=== PATIENT | male | born 1980 | race Caucasian/White ===

== ENCOUNTER 2019-09-24 06:00 | Outpatient (RCR) | payer MEDICARE, SELFPAY | END 2019-10-07 00:01 | LOC: TPT 06:00 | PROVIDERS: Family Provider Family Medicine; Visit Provider Family Medicine | DX: M54.5 Low back pain (principal) | CPT/HCPCS: 97110; 97161; 97530; G0283 ==

== ENCOUNTER 2019-10-08 06:00 | Outpatient (RCR) | payer MEDICARE, MEDICAID, SELFPAY | END 2019-11-07 23:59 | disposition home or self-care (01) | LOC: TOT 06:00 | PROVIDERS: Family Provider Family Medicine; PCP Family Medicine; Visit Provider Family Medicine | DX: G89.29 Other chronic pain (principal); M54.5 Low back pain | CPT/HCPCS: 97110; 97530 ==

== ENCOUNTER → 2019-12-09 14:22 | Outpatient (BNVA) | payer MEDICARE, MEDICAID, SELFPAY | PROVIDERS: Family Provider Family Medicine; PCP Family Medicine; Visit Provider Nurse Practitioner Psychiatric/Mental Health | DX: F20.5 Residual schizophrenia (principal); F17.210 Nicotine dependence, cigarettes, uncomplicated | CPT/HCPCS: 99214 ==

== ENCOUNTER → 2020-01-07 07:23 | Outpatient (BNVA) | payer MEDICARE, MEDICAID, SELFPAY | PROVIDERS: Family Provider Family Medicine; PCP Family Medicine; Visit Provider Nurse Practitioner Psychiatric/Mental Health | DX: F20.5 Residual schizophrenia (principal); F17.210 Nicotine dependence, cigarettes, uncomplicated; F91.3 Oppositional defiant disorder | CPT/HCPCS: 99214 ==

== ENCOUNTER → 2020-02-06 12:56 | Outpatient (BNVA) | payer MEDICARE, MEDICAID, SELFPAY | PROVIDERS: Family Provider Family Medicine; PCP Family Medicine; Visit Provider Nurse Practitioner Psychiatric/Mental Health | DX: F20.5 Residual schizophrenia (principal); F17.210 Nicotine dependence, cigarettes, uncomplicated; F43.12 Post-traumatic stress disorder, chronic | CPT/HCPCS: 99214 ==

== ENCOUNTER → 2020-03-05 08:19 | Outpatient (BNVA) | payer MEDICARE, MEDICAID, SELFPAY | PROVIDERS: Family Provider Family Medicine; PCP Family Medicine; Visit Provider Nurse Practitioner Psychiatric/Mental Health | DX: F20.5 Residual schizophrenia (principal); F17.210 Nicotine dependence, cigarettes, uncomplicated | CPT/HCPCS: 99214 ==

== ENCOUNTER → 2020-04-01 13:08 | Outpatient (BNVA) | payer MEDICARE, MEDICAID, SELFPAY | PROVIDERS: Family Provider Family Medicine; PCP Family Medicine; Visit Provider Nurse Practitioner Psychiatric/Mental Health | DX: F20.5 Residual schizophrenia (principal); F12.20 Cannabis dependence, uncomplicated; F17.210 Nicotine dependence, cigarettes, uncomplicated | CPT/HCPCS: 96372; 99214 ==

== ENCOUNTER → 2020-05-04 07:34 | Outpatient (BNVA) | payer MEDICARE, MEDICAID, SELFPAY | PROVIDERS: Family Provider Family Medicine; PCP Family Medicine; Visit Provider Nurse Practitioner Psychiatric/Mental Health | DX: F20.5 Residual schizophrenia (principal); F12.20 Cannabis dependence, uncomplicated; F17.210 Nicotine dependence, cigarettes, uncomplicated; F41.1 Generalized anxiety disorder; F43.12 Post-traumatic stress disorder, chronic; F64.0 Transsexualism | CPT/HCPCS: 96372; 99214 ==

== ENCOUNTER → 2020-06-03 07:56 | Outpatient (BNVA) | payer MEDICARE, MEDICAID, SELFPAY | PROVIDERS: Family Provider Family Medicine; PCP Family Medicine; Visit Provider Nurse Practitioner Psychiatric/Mental Health | DX: F20.5 Residual schizophrenia (principal); F12.20 Cannabis dependence, uncomplicated; F17.210 Nicotine dependence, cigarettes, uncomplicated; F64.0 Transsexualism | CPT/HCPCS: 96372; 99214 ==

== ENCOUNTER → 2020-07-01 09:44 | Outpatient (BNVA) | payer MEDICARE, MEDICAID, SELFPAY | PROVIDERS: Family Provider Family Medicine; PCP Family Medicine; Visit Provider Nurse Practitioner Psychiatric/Mental Health | DX: F20.5 Residual schizophrenia (principal); F12.20 Cannabis dependence, uncomplicated; F17.210 Nicotine dependence, cigarettes, uncomplicated; F64.0 Transsexualism | CPT/HCPCS: 96372; 99214 ==

== ENCOUNTER → 2020-07-29 10:10 | Outpatient (BNVA) | payer MEDICARE, MEDICAID, SELFPAY | PROVIDERS: Family Provider Family Medicine; PCP Family Medicine; Visit Provider Nurse Practitioner Psychiatric/Mental Health | DX: F20.5 Residual schizophrenia (principal); F12.20 Cannabis dependence, uncomplicated; F17.210 Nicotine dependence, cigarettes, uncomplicated; F64.0 Transsexualism | CPT/HCPCS: 96372; 99214 ==

== ENCOUNTER → 2020-08-19 13:19 | Outpatient (BNVA) | payer MEDICARE, SELFPAY | PROVIDERS: Family Provider Family Medicine; PCP Family Medicine; Visit Provider Family Medicine | DX: E78.5 Hyperlipidemia, unspecified (principal) | CPT/HCPCS: 80053; 80061 ==

== ENCOUNTER → 2020-08-26 14:26 | Outpatient (BNVA) | payer MEDICARE, MEDICAID, SELFPAY | PROVIDERS: Family Provider Family Medicine; PCP Family Medicine; Visit Provider Nurse Practitioner Psychiatric/Mental Health | DX: F20.5 Residual schizophrenia (principal); F12.20 Cannabis dependence, uncomplicated; F17.210 Nicotine dependence, cigarettes, uncomplicated; F64.0 Transsexualism | CPT/HCPCS: 96372; 99214 ==

== ENCOUNTER 2020-09-01 13:04 | Outpatient (CLI) | payer MEDICARE, MEDICAID, SELFPAY ==
[2020-09-01 13:59] LABS: Anion Gap 12.9 (5-19); Blood Urea Nitrogen 8 mg/dL (6-20); Calcium 9.5 mg/dL (8.5-10.5); Carbon Dioxide 27 mmol/L (22-29); Chloride 105 mmol/L (98-107); Glomerular Filtration Rate 94.4 mL/min (90-130); Glucose 143 mg/dL (65-115); Osmolality Calculated 293 mOsm/kg (285-295); Potassium 3.9 mmol/L (3.5-5.1); Sodium 141 mmol/L (136-145)
== END 2020-09-01 13:05 | disposition home or self-care (01) ==
LOC: LAB 13:17
PROVIDERS: PCP Family Medicine; Visit Provider Internal Medicine
DX: F64.0 Transsexualism (principal)
CPT/HCPCS: 80048

== ENCOUNTER → 2020-09-16 08:49 | Outpatient (BNVA) | payer MEDICARE, MEDICAID, SELFPAY | PROVIDERS: Family Provider Family Medicine; PCP Family Medicine; Visit Provider Nurse Practitioner Psychiatric/Mental Health | DX: F20.5 Residual schizophrenia (principal); F12.20 Cannabis dependence, uncomplicated; F17.210 Nicotine dependence, cigarettes, uncomplicated; F64.0 Transsexualism | CPT/HCPCS: 96372; 99214 ==

== ENCOUNTER → 2020-10-21 14:48 | Outpatient (BNVA) | payer MEDICAID, SELFPAY | PROVIDERS: Family Provider Family Medicine; PCP Family Medicine; Visit Provider Nurse Practitioner Psychiatric/Mental Health | DX: F20.5 Residual schizophrenia (principal); F12.20 Cannabis dependence, uncomplicated; F17.210 Nicotine dependence, cigarettes, uncomplicated; F64.0 Transsexualism | CPT/HCPCS: 99214 ==

== ENCOUNTER → 2020-11-30 10:30 | Outpatient (BNVA) | payer MEDICAID, OTHER, SELFPAY | PROVIDERS: Family Provider Family Medicine; PCP Family Medicine; Visit Provider Nurse Practitioner Psychiatric/Mental Health | DX: F20.5 Residual schizophrenia (principal); F12.20 Cannabis dependence, uncomplicated; F17.210 Nicotine dependence, cigarettes, uncomplicated; F64.0 Transsexualism | CPT/HCPCS: 99214 ==

== ENCOUNTER → 2020-12-27 13:33 | Outpatient (BNVA) | payer OTHER, SELFPAY | PROVIDERS: Family Provider Family Medicine; PCP Family Medicine; Visit Provider Nurse Practitioner Psychiatric/Mental Health | DX: F20.5 Residual schizophrenia (principal); Z79.899 Other long term (current) drug therapy | CPT/HCPCS: 99214; 80061; 83036 ==

== ENCOUNTER → 2020-12-28 12:03 | Outpatient (BNVA) | payer MEDICAID, SELFPAY ==
[2020-12-30 13:29] VITALS: BP 123/74; BMI 23.8
== END ==
PROVIDERS: Family Provider Family Medicine; PCP Family Medicine; Visit Provider Nurse Practitioner Psychiatric/Mental Health
DX: F20.5 Residual schizophrenia (principal); F12.20 Cannabis dependence, uncomplicated; F17.210 Nicotine dependence, cigarettes, uncomplicated; F64.0 Transsexualism
CPT/HCPCS: 99214

== ENCOUNTER → 2021-01-26 13:00 | Outpatient (BNVA) | payer MEDICAID, SELFPAY ==
[2021-01-26 15:29] VITALS: BP 123/74; BMI 23.8
== END ==
PROVIDERS: Family Provider Family Medicine; PCP Family Medicine; Visit Provider Nurse Practitioner Psychiatric/Mental Health
DX: F20.5 Residual schizophrenia (principal); F12.20 Cannabis dependence, uncomplicated; F17.210 Nicotine dependence, cigarettes, uncomplicated; F64.0 Transsexualism
CPT/HCPCS: 99214

== ENCOUNTER → 2021-02-10 08:43 | Outpatient (BNVA) | payer MEDICAID, SELFPAY ==
[2021-01-26 15:29] VITALS: BP 123/74; BMI 23.8
== END ==
PROVIDERS: Family Provider Family Medicine; PCP Family Medicine; Visit Provider Nurse Practitioner Psychiatric/Mental Health
DX: F20.5 Residual schizophrenia (principal); F12.20 Cannabis dependence, uncomplicated; F17.210 Nicotine dependence, cigarettes, uncomplicated; F64.0 Transsexualism
CPT/HCPCS: 99214

== ENCOUNTER → 2021-02-24 14:15 | Outpatient (BNVA) | payer MEDICAID, SELFPAY ==
[2021-01-26 15:29] VITALS: BP 123/74; BMI 23.8
== END ==
PROVIDERS: Family Provider Family Medicine; PCP Family Medicine; Visit Provider Nurse Practitioner Psychiatric/Mental Health
DX: F20.5 Residual schizophrenia (principal); F12.20 Cannabis dependence, uncomplicated; F17.210 Nicotine dependence, cigarettes, uncomplicated; F64.0 Transsexualism
CPT/HCPCS: 96372; 99214

== ENCOUNTER → 2021-03-11 08:26 | Outpatient (BNVA) | payer MEDICAID, SELFPAY ==
[2021-01-26 15:29] VITALS: BP 123/74; BMI 23.8
== END ==
PROVIDERS: Family Provider Family Medicine; PCP Family Medicine; Visit Provider Nurse Practitioner Psychiatric/Mental Health
DX: F20.5 Residual schizophrenia (principal); F12.20 Cannabis dependence, uncomplicated; F17.210 Nicotine dependence, cigarettes, uncomplicated; F64.0 Transsexualism
CPT/HCPCS: 96372; 99214

== ENCOUNTER → 2021-03-24 13:48 | Outpatient (BNVA) | payer MEDICAID, SELFPAY ==
[2021-01-26 15:29] VITALS: BP 123/74; BMI 23.8
== END ==
PROVIDERS: Family Provider Family Medicine; PCP Family Medicine; Visit Provider Nurse Practitioner Psychiatric/Mental Health
DX: F20.5 Residual schizophrenia (principal); F12.20 Cannabis dependence, uncomplicated; F17.210 Nicotine dependence, cigarettes, uncomplicated; F64.0 Transsexualism
CPT/HCPCS: 96372; 99214

== ENCOUNTER → 2021-03-31 14:41 | Outpatient (BNVA) | payer MEDICAID, SELFPAY ==
[2021-01-26 15:29] VITALS: BP 123/74; BMI 23.8
== END ==
PROVIDERS: Family Provider Family Medicine; PCP Family Medicine; Visit Provider Family Medicine
DX: E78.5 Hyperlipidemia, unspecified (principal)
CPT/HCPCS: 80053; 85025

== ENCOUNTER → 2021-04-06 15:23 | Outpatient (BNVA) | payer MEDICAID, SELFPAY ==
[2021-01-26 15:29] VITALS: BP 123/74; BMI 23.8
== END ==
PROVIDERS: Family Provider Family Medicine; PCP Family Medicine; Visit Provider Nurse Practitioner Psychiatric/Mental Health
DX: F20.5 Residual schizophrenia (principal); F17.210 Nicotine dependence, cigarettes, uncomplicated; F64.0 Transsexualism; Z79.899 Other long term (current) drug therapy
CPT/HCPCS: 96372; 99214

== ENCOUNTER → 2021-04-22 11:20 | Outpatient (BNVA) | payer MEDICAID, SELFPAY ==
[2021-01-26 15:29] VITALS: BP 123/74; BMI 23.8
== END ==
PROVIDERS: Family Provider Family Medicine; PCP Family Medicine; Visit Provider Nurse Practitioner Psychiatric/Mental Health
DX: F20.5 Residual schizophrenia (principal); Z79.899 Other long term (current) drug therapy; F17.210 Nicotine dependence, cigarettes, uncomplicated; F64.0 Transsexualism
CPT/HCPCS: 84146; 96372; 99214

== ENCOUNTER → 2021-05-04 14:19 | Outpatient (BNVA) | payer MEDICARE, MEDICAID, SELFPAY ==
[2021-01-26 15:29] VITALS: BP 123/74; BMI 23.8
== END ==
PROVIDERS: Family Provider Family Medicine; PCP Family Medicine; Visit Provider Nurse Practitioner Psychiatric/Mental Health
DX: F20.5 Residual schizophrenia (principal); F64.0 Transsexualism; F17.210 Nicotine dependence, cigarettes, uncomplicated; Z79.899 Other long term (current) drug therapy
CPT/HCPCS: 96372; 99214

== ENCOUNTER → 2021-05-18 15:06 | Outpatient (BNVA) | payer MEDICAID, SELFPAY ==
[2021-01-26 15:29] VITALS: BP 123/74; BMI 23.8
== END ==
PROVIDERS: Family Provider Family Medicine; PCP Family Medicine; Visit Provider Nurse Practitioner Psychiatric/Mental Health
DX: F20.5 Residual schizophrenia (principal); F17.210 Nicotine dependence, cigarettes, uncomplicated; F64.0 Transsexualism; Z79.899 Other long term (current) drug therapy
CPT/HCPCS: 96372; 99214

== ENCOUNTER → 2021-05-19 13:14 | Outpatient (BNVA) | payer MEDICAID, SELFPAY ==
[2021-01-26 15:29] VITALS: BP 123/74; BMI 23.8
== END ==
PROVIDERS: Family Provider Family Medicine; PCP Family Medicine; Visit Provider Nurse Practitioner Psychiatric/Mental Health
DX: Z79.899 Other long term (current) drug therapy (principal)
CPT/HCPCS: 84146

== ENCOUNTER → 2021-06-01 14:41 | Outpatient (BNVA) | payer MEDICAID, SELFPAY ==
[2021-01-26 15:29] VITALS: BP 123/74; BMI 23.8
== END ==
PROVIDERS: Family Provider Family Medicine; PCP Family Medicine; Visit Provider Nurse Practitioner Psychiatric/Mental Health
DX: F64.0 Transsexualism; F17.210 Nicotine dependence, cigarettes, uncomplicated; Z79.899 Other long term (current) drug therapy; F20.5 Residual schizophrenia
CPT/HCPCS: 96372; 99214

== ENCOUNTER → 2021-06-15 10:51 | Outpatient (BNVA) | payer MEDICAID, SELFPAY ==
[2021-01-26 15:29] VITALS: BP 123/74; BMI 23.8
== END ==
PROVIDERS: Family Provider Family Medicine; PCP Family Medicine; Visit Provider Nurse Practitioner Psychiatric/Mental Health
DX: F20.5 Residual schizophrenia (principal); F64.0 Transsexualism; F17.210 Nicotine dependence, cigarettes, uncomplicated; Z79.899 Other long term (current) drug therapy
CPT/HCPCS: 96372; 99214

== ENCOUNTER → 2021-06-29 13:27 | Outpatient (BNVA) | payer MEDICAID, OTHER, SELFPAY ==
[2021-01-26 15:29] VITALS: BP 123/74; BMI 23.8
== END ==
PROVIDERS: Family Provider Family Medicine; PCP Family Medicine; Visit Provider Nurse Practitioner Psychiatric/Mental Health
DX: F20.5 Residual schizophrenia (principal); F17.210 Nicotine dependence, cigarettes, uncomplicated; F64.0 Transsexualism; Z79.899 Other long term (current) drug therapy
CPT/HCPCS: 96372; 99214

== ENCOUNTER → 2021-07-13 15:29 | Outpatient (BNVA) | payer MEDICAID, SELFPAY ==
[2021-01-26 15:29] VITALS: BP 123/74; BMI 23.8
== END ==
PROVIDERS: Family Provider Family Medicine; PCP Family Medicine; Visit Provider Nurse Practitioner Psychiatric/Mental Health
DX: F20.5 Residual schizophrenia (principal); F64.0 Transsexualism; F17.210 Nicotine dependence, cigarettes, uncomplicated; Z79.899 Other long term (current) drug therapy
CPT/HCPCS: 96372; 99214

== ENCOUNTER → 2021-07-27 14:48 | Outpatient (BNVA) | payer MEDICAID, SELFPAY ==
[2021-01-26 15:29] VITALS: BP 123/74; BMI 23.8
== END ==
PROVIDERS: Family Provider Family Medicine; PCP Family Medicine; Visit Provider Nurse Practitioner Psychiatric/Mental Health
DX: F20.5 Residual schizophrenia (principal)
CPT/HCPCS: 96372; 99214

== ENCOUNTER → 2021-08-10 14:47 | Outpatient (BNVA) | payer MEDICAID, SELFPAY ==
[2021-01-26 15:29] VITALS: BP 123/74; BMI 23.8
== END ==
PROVIDERS: Family Provider Family Medicine; PCP Family Medicine; Visit Provider Nurse Practitioner Psychiatric/Mental Health
DX: F20.5 Residual schizophrenia (principal); F64.0 Transsexualism; F17.210 Nicotine dependence, cigarettes, uncomplicated; Z79.899 Other long term (current) drug therapy
CPT/HCPCS: 96372; 99214

== ENCOUNTER → 2021-08-24 14:52 | Outpatient (BNVA) | payer MEDICAID, OTHER, SELFPAY ==
[2021-01-26 15:29] VITALS: BP 123/74; BMI 23.8
== END ==
PROVIDERS: Family Provider Family Medicine; PCP Family Medicine; Visit Provider Nurse Practitioner Psychiatric/Mental Health
DX: F20.5 Residual schizophrenia (principal); F64.0 Transsexualism; F17.210 Nicotine dependence, cigarettes, uncomplicated; Z79.899 Other long term (current) drug therapy
CPT/HCPCS: 96372; 99214

== ENCOUNTER → 2021-09-07 14:47 | Outpatient (BNVA) | payer MEDICAID, SELFPAY ==
[2021-01-26 15:29] VITALS: BP 123/74; BMI 23.8
== END ==
PROVIDERS: Family Provider Family Medicine; PCP Family Medicine; Visit Provider Nurse Practitioner Psychiatric/Mental Health
DX: F20.5 Residual schizophrenia (principal); F64.0 Transsexualism; F17.210 Nicotine dependence, cigarettes, uncomplicated; Z79.899 Other long term (current) drug therapy
CPT/HCPCS: 87635; 96372; 99214

== ENCOUNTER → 2021-09-21 14:48 | Outpatient (BNVA) | payer MEDICAID, SELFPAY ==
[2021-01-26 15:29] VITALS: BP 123/74; BMI 23.8
== END ==
PROVIDERS: Family Provider Family Medicine; PCP Family Medicine; Visit Provider Nurse Practitioner Psychiatric/Mental Health
DX: F20.5 Residual schizophrenia (principal); F17.210 Nicotine dependence, cigarettes, uncomplicated; F64.0 Transsexualism; Z79.899 Other long term (current) drug therapy
CPT/HCPCS: 99214

== ENCOUNTER → 2021-10-04 13:38 | Outpatient (BNVA) | payer MEDICAID, SELFPAY ==
[2021-01-26 15:29] VITALS: BP 123/74; BMI 23.8
== END ==
PROVIDERS: Family Provider Family Medicine; PCP Family Medicine; Visit Provider Nurse Practitioner Psychiatric/Mental Health
DX: F20.5 Residual schizophrenia (principal); F17.210 Nicotine dependence, cigarettes, uncomplicated; F64.0 Transsexualism; Z79.899 Other long term (current) drug therapy
CPT/HCPCS: 96372; 99214

== ENCOUNTER → 2021-10-18 15:12 | Outpatient (BNVA) | payer MEDICAID, SELFPAY ==
[2021-01-26 15:29] VITALS: BP 123/74; BMI 23.8
== END ==
PROVIDERS: Family Provider Family Medicine; PCP Family Medicine; Visit Provider Nurse Practitioner Psychiatric/Mental Health
DX: F20.5 Residual schizophrenia (principal); F64.0 Transsexualism; F17.210 Nicotine dependence, cigarettes, uncomplicated; Z79.899 Other long term (current) drug therapy
CPT/HCPCS: 80053; 84146; 99214

== ENCOUNTER → 2021-11-01 15:17 | Outpatient (BNVA) | payer MEDICAID, SELFPAY ==
[2021-01-26 15:29] VITALS: BP 123/74; BMI 23.8
== END ==
PROVIDERS: Family Provider Family Medicine; PCP Family Medicine; Visit Provider Nurse Practitioner Psychiatric/Mental Health
DX: F20.5 Residual schizophrenia (principal); F17.210 Nicotine dependence, cigarettes, uncomplicated; F64.0 Transsexualism; Z79.899 Other long term (current) drug therapy
CPT/HCPCS: 80053; 84146; 84439; 84443; 99214

== ENCOUNTER → 2021-11-08 11:18 | Outpatient (BNVA) | payer MEDICAID, SELFPAY ==
[2021-01-26 15:29] VITALS: BP 123/74; BMI 23.8
== END ==
PROVIDERS: Family Provider Family Medicine; PCP Family Medicine; Visit Provider Family Medicine
DX: E78.5 Hyperlipidemia, unspecified (principal); J41.0 Simple chronic bronchitis; E22.1 Hyperprolactinemia; F17.210 Nicotine dependence, cigarettes, uncomplicated; R00.2 Palpitations
CPT/HCPCS: 80053; 80061; 85025

== ENCOUNTER → 2021-11-29 14:49 | Outpatient (BNVA) | payer MEDICAID, SELFPAY ==
[2021-01-26 15:29] VITALS: BP 123/74; BMI 23.8
== END ==
PROVIDERS: Family Provider Family Medicine; PCP Family Medicine; Visit Provider Nurse Practitioner Psychiatric/Mental Health
DX: F20.5 Residual schizophrenia (principal); F17.210 Nicotine dependence, cigarettes, uncomplicated; F64.0 Transsexualism; Z79.899 Other long term (current) drug therapy
CPT/HCPCS: 84146; 85007; 85027; 99215

== ENCOUNTER → 2021-12-06 15:09 | Outpatient (BNVA) | payer MEDICAID, SELFPAY ==
[2021-01-26 15:29] VITALS: BP 123/74; BMI 23.8
== END ==
PROVIDERS: Family Provider Family Medicine; PCP Family Medicine; Visit Provider Nurse Practitioner Psychiatric/Mental Health
DX: F20.5 Residual schizophrenia (principal); F17.210 Nicotine dependence, cigarettes, uncomplicated; F64.0 Transsexualism; Z79.899 Other long term (current) drug therapy
CPT/HCPCS: 85007; 85027; 99214

== ENCOUNTER → 2021-12-13 14:48 | Outpatient (BNVA) | payer MEDICAID, SELFPAY ==
[2021-01-26 15:29] VITALS: BP 123/74; BMI 23.8
== END ==
PROVIDERS: Family Provider Family Medicine; PCP Family Medicine; Visit Provider Nurse Practitioner Psychiatric/Mental Health
DX: F20.5 Residual schizophrenia (principal); F17.210 Nicotine dependence, cigarettes, uncomplicated; F64.0 Transsexualism; Z79.899 Other long term (current) drug therapy
CPT/HCPCS: 85007; 85027; 99214

== ENCOUNTER → 2021-12-21 14:53 | Outpatient (BNVA) | payer MEDICAID, SELFPAY ==
[2021-01-26 15:29] VITALS: BP 123/74; BMI 23.8
== END ==
PROVIDERS: Family Provider Family Medicine; PCP Family Medicine; Visit Provider Nurse Practitioner Psychiatric/Mental Health
DX: F20.5 Residual schizophrenia (principal); F17.210 Nicotine dependence, cigarettes, uncomplicated; F64.0 Transsexualism; Z79.899 Other long term (current) drug therapy
CPT/HCPCS: 85007; 85027; 99214

== ENCOUNTER → 2021-12-29 14:46 | Outpatient (BNVA) | payer MEDICAID, SELFPAY ==
[2021-01-26 15:29] VITALS: BP 123/74; BMI 23.8
== END ==
PROVIDERS: Family Provider Family Medicine; PCP Family Medicine; Visit Provider Nurse Practitioner Psychiatric/Mental Health
DX: F20.5 Residual schizophrenia (principal); F17.210 Nicotine dependence, cigarettes, uncomplicated; F64.0 Transsexualism; Z79.899 Other long term (current) drug therapy
CPT/HCPCS: 85007; 85027; 99214

== ENCOUNTER → 2022-01-16 09:59 | Outpatient (BNVA) | payer MEDICAID, SELFPAY ==
[2021-01-26 15:29] VITALS: BP 123/74; BMI 23.8
== END ==
PROVIDERS: Family Provider Family Medicine; PCP Family Medicine; Visit Provider Psychiatry & Neurology Psychiatry
DX: F20.5 Residual schizophrenia (principal); F17.210 Nicotine dependence, cigarettes, uncomplicated; F64.0 Transsexualism; Z79.899 Other long term (current) drug therapy
CPT/HCPCS: 85025; 99215

== ENCOUNTER → 2022-01-26 14:44 | Outpatient (BNVA) | payer MEDICAID, SELFPAY ==
[2021-01-26 15:29] VITALS: BP 123/74; BMI 23.8
== END ==
PROVIDERS: Family Provider Family Medicine; PCP Family Medicine; Visit Provider Psychiatry & Neurology Psychiatry
DX: F20.5 Residual schizophrenia (principal); F64.0 Transsexualism; K11.7 Disturbances of salivary secretion; F17.210 Nicotine dependence, cigarettes, uncomplicated; Z79.899 Other long term (current) drug therapy
CPT/HCPCS: 85007; 85027; 99214

== ENCOUNTER → 2022-02-02 09:48 | Outpatient (BNVA) | payer MEDICAID, SELFPAY ==
[2021-01-26 15:29] VITALS: BP 123/74; BMI 23.8
== END ==
PROVIDERS: Family Provider Family Medicine; PCP Family Medicine; Visit Provider Nurse Practitioner Psychiatric/Mental Health
DX: F20.5 Residual schizophrenia (principal); F64.0 Transsexualism; K11.7 Disturbances of salivary secretion; F17.210 Nicotine dependence, cigarettes, uncomplicated
CPT/HCPCS: 85007; 85027; 99214

== ENCOUNTER → 2022-02-09 12:47 | Outpatient (BNVA) | payer MEDICAID, SELFPAY ==
[2021-01-26 15:29] VITALS: BP 123/74; BMI 23.8
== END ==
PROVIDERS: Family Provider Family Medicine; PCP Family Medicine; Visit Provider Nurse Practitioner Psychiatric/Mental Health
DX: F20.5 Residual schizophrenia (principal); F64.0 Transsexualism; F17.210 Nicotine dependence, cigarettes, uncomplicated; Z79.899 Other long term (current) drug therapy; K11.7 Disturbances of salivary secretion
CPT/HCPCS: 85007; 85027; 99214

== ENCOUNTER → 2022-02-14 11:09 | Outpatient (BNVA) | payer MEDICAID, SELFPAY ==
[2021-01-26 15:29] VITALS: BP 123/74; BMI 23.8
== END ==
PROVIDERS: Family Provider Family Medicine; PCP Family Medicine; Visit Provider Internal Medicine Cardiovascular Disease
DX: R00.2 Palpitations (principal); R00.0 Tachycardia, unspecified; M79.89 Other specified soft tissue disorders; J41.0 Simple chronic bronchitis; E78.5 Hyperlipidemia, unspecified; F20.5 Residual schizophrenia; F17.210 Nicotine dependence, cigarettes, uncomplicated
CPT/HCPCS: 93005; 99204

== ENCOUNTER → 2022-02-16 12:49 | Outpatient (BNVA) | payer MEDICAID, SELFPAY ==
[2021-01-26 15:29] VITALS: BP 123/74; BMI 23.8
== END ==
PROVIDERS: Family Provider Family Medicine; PCP Family Medicine; Visit Provider Nurse Practitioner Psychiatric/Mental Health
DX: F20.5 Residual schizophrenia (principal); F64.0 Transsexualism; F17.210 Nicotine dependence, cigarettes, uncomplicated; K11.7 Disturbances of salivary secretion; Z79.899 Other long term (current) drug therapy
CPT/HCPCS: 85007; 85027; 99214

== ENCOUNTER → 2022-02-23 12:51 | Outpatient (BNVA) | payer MEDICAID, SELFPAY ==
[2021-01-26 15:29] VITALS: BP 123/74; BMI 23.8
== END ==
PROVIDERS: Family Provider Family Medicine; PCP Family Medicine; Visit Provider Nurse Practitioner Psychiatric/Mental Health
DX: F20.5 Residual schizophrenia (principal); F64.0 Transsexualism; F17.210 Nicotine dependence, cigarettes, uncomplicated; Z79.899 Other long term (current) drug therapy; K11.7 Disturbances of salivary secretion
CPT/HCPCS: 85007; 85027; 99214

== ENCOUNTER → 2022-03-09 12:51 | Outpatient (BNVA) | payer MEDICAID, SELFPAY ==
[2021-01-26 15:29] VITALS: BP 123/74; BMI 23.8
== END ==
PROVIDERS: Family Provider Family Medicine; PCP Family Medicine; Visit Provider Nurse Practitioner Psychiatric/Mental Health
DX: F20.5 Residual schizophrenia (principal); F64.0 Transsexualism; F17.210 Nicotine dependence, cigarettes, uncomplicated; K11.7 Disturbances of salivary secretion; Z79.899 Other long term (current) drug therapy
CPT/HCPCS: 85007; 85027; 99214

== ENCOUNTER → 2022-03-16 12:50 | Outpatient (BNVA) | payer MEDICAID, SELFPAY ==
[2021-01-26 15:29] VITALS: BP 123/74; BMI 23.8
== END ==
PROVIDERS: Family Provider Family Medicine; PCP Family Medicine; Visit Provider Nurse Practitioner Psychiatric/Mental Health
DX: F20.5 Residual schizophrenia (principal); F64.0 Transsexualism; F17.210 Nicotine dependence, cigarettes, uncomplicated; K11.7 Disturbances of salivary secretion; Z79.899 Other long term (current) drug therapy
CPT/HCPCS: 85007; 85027; 99214

== ENCOUNTER → 2022-03-23 12:51 | Outpatient (BNVA) | payer MEDICAID, SELFPAY ==
[2021-01-26 15:29] VITALS: BP 123/74; BMI 23.8
== END ==
PROVIDERS: Family Provider Family Medicine; PCP Family Medicine; Visit Provider Nurse Practitioner Psychiatric/Mental Health
DX: F20.5 Residual schizophrenia (principal); F64.0 Transsexualism; F17.210 Nicotine dependence, cigarettes, uncomplicated; K11.7 Disturbances of salivary secretion; Z79.899 Other long term (current) drug therapy
CPT/HCPCS: 84146; 85007; 85027; 99214

== ENCOUNTER → 2022-03-31 13:20 | Outpatient (BNVA) | payer MEDICAID, SELFPAY ==
[2021-01-26 15:29] VITALS: BP 123/74; BMI 23.8
== END ==
PROVIDERS: Family Provider Family Medicine; PCP Family Medicine; Visit Provider Nurse Practitioner Psychiatric/Mental Health
DX: F20.5 Residual schizophrenia (principal); F64.0 Transsexualism; F17.210 Nicotine dependence, cigarettes, uncomplicated; Z79.899 Other long term (current) drug therapy; K11.7 Disturbances of salivary secretion
CPT/HCPCS: 83036; 99214

== ENCOUNTER → 2022-04-05 14:17 | Outpatient (BNVA) | payer MEDICAID, SELFPAY ==
[2021-01-26 15:29] VITALS: BP 123/74; BMI 23.8
== END ==
PROVIDERS: Family Provider Family Medicine; PCP Family Medicine; Visit Provider Nurse Practitioner Psychiatric/Mental Health
DX: F20.5 Residual schizophrenia (principal); F64.0 Transsexualism; F17.210 Nicotine dependence, cigarettes, uncomplicated; Z79.899 Other long term (current) drug therapy; K11.7 Disturbances of salivary secretion
CPT/HCPCS: 85007; 85027; 99214

== ENCOUNTER → 2022-04-13 15:17 | Outpatient (BNVA) | payer MEDICAID, SELFPAY ==
[2021-01-26 15:29] VITALS: BP 123/74; BMI 23.8
== END ==
PROVIDERS: Family Provider Family Medicine; PCP Family Medicine; Visit Provider Nurse Practitioner Psychiatric/Mental Health
DX: F20.5 Residual schizophrenia (principal); Z79.899 Other long term (current) drug therapy
CPT/HCPCS: 85007; 85027

== ENCOUNTER → 2022-04-20 13:06 | Outpatient (BNVA) | payer MEDICARE, MEDICAID, SELFPAY ==
[2021-01-26 15:29] VITALS: BP 123/74; BMI 23.8
== END ==
PROVIDERS: Family Provider Family Medicine; PCP Family Medicine; Visit Provider Nurse Practitioner Psychiatric/Mental Health
DX: F20.5 Residual schizophrenia (principal); Z79.899 Other long term (current) drug therapy
CPT/HCPCS: 85007; 85027

== ENCOUNTER → 2022-04-26 13:34 | Outpatient (BNVA) | payer MEDICAID, SELFPAY ==
[2021-01-26 15:29] VITALS: BP 123/74; BMI 23.8
== END ==
PROVIDERS: Family Provider Family Medicine; PCP Family Medicine; Visit Provider Nurse Practitioner Psychiatric/Mental Health
DX: Z79.899 Other long term (current) drug therapy (principal); F20.5 Residual schizophrenia; F64.0 Transsexualism; K11.7 Disturbances of salivary secretion; F17.210 Nicotine dependence, cigarettes, uncomplicated
CPT/HCPCS: 85007; 85027

== ENCOUNTER → 2022-05-03 11:07 | Outpatient (BNVA) | payer MEDICAID, SELFPAY ==
[2021-01-26 15:29] VITALS: BP 123/74; BMI 23.8
== END ==
PROVIDERS: Family Provider Family Medicine; PCP Family Medicine; Visit Provider Nurse Practitioner Psychiatric/Mental Health
DX: Z79.899 Other long term (current) drug therapy (principal); F20.5 Residual schizophrenia; F64.0 Transsexualism; K11.7 Disturbances of salivary secretion; F17.210 Nicotine dependence, cigarettes, uncomplicated
CPT/HCPCS: 85007; 85027

== ENCOUNTER → 2022-05-09 11:13 | Outpatient (BNVA) | payer MEDICAID, SELFPAY ==
[2021-01-26 15:29] VITALS: BP 123/74; BMI 23.8
== END ==
PROVIDERS: Family Provider Family Medicine; PCP Family Medicine; Visit Provider Nurse Practitioner Psychiatric/Mental Health
DX: F20.5 Residual schizophrenia (principal); F64.0 Transsexualism; K11.7 Disturbances of salivary secretion; F17.210 Nicotine dependence, cigarettes, uncomplicated; Z79.899 Other long term (current) drug therapy
CPT/HCPCS: 85007; 85027

== ENCOUNTER → 2022-05-18 13:08 | Outpatient (BNVA) | payer MEDICAID, SELFPAY ==
[2021-01-26 15:29] VITALS: BP 123/74; BMI 23.8
== END ==
PROVIDERS: Family Provider Family Medicine; PCP Family Medicine; Visit Provider Nurse Practitioner Psychiatric/Mental Health
DX: Z79.899 Other long term (current) drug therapy (principal); F20.5 Residual schizophrenia; F64.0 Transsexualism; K11.7 Disturbances of salivary secretion; F17.210 Nicotine dependence, cigarettes, uncomplicated
CPT/HCPCS: 85007; 85027

== ENCOUNTER → 2022-05-25 13:39 | Outpatient (BNVA) | payer MEDICAID, SELFPAY ==
[2021-01-26 15:29] VITALS: BP 123/74; BMI 23.8
== END ==
PROVIDERS: Family Provider Family Medicine; PCP Family Medicine Adult Medicine; Visit Provider Nurse Practitioner Psychiatric/Mental Health
DX: Z79.899 Other long term (current) drug therapy (principal); F20.5 Residual schizophrenia; F64.0 Transsexualism; K11.7 Disturbances of salivary secretion; F17.210 Nicotine dependence, cigarettes, uncomplicated
CPT/HCPCS: 85007; 85027

== ENCOUNTER → 2022-06-05 13:23 | Outpatient (BNVA) | payer MEDICAID, OTHER, SELFPAY ==
[2021-01-26 15:29] VITALS: BP 123/74; BMI 23.8
== END ==
PROVIDERS: Family Provider Family Medicine; PCP Family Medicine Adult Medicine; Visit Provider Nurse Practitioner Psychiatric/Mental Health
DX: Z79.899 Other long term (current) drug therapy (principal)
CPT/HCPCS: 85007; 85027

== ENCOUNTER → 2022-06-22 11:18 | Outpatient (BNVA) | payer MEDICAID, SELFPAY ==
[2021-01-26 15:29] VITALS: BP 123/74; BMI 23.8
== END ==
PROVIDERS: Family Provider Family Medicine; PCP Family Medicine Adult Medicine; Visit Provider Nurse Practitioner Psychiatric/Mental Health
DX: F20.5 Residual schizophrenia (principal); Z79.899 Other long term (current) drug therapy
CPT/HCPCS: 85007; 85027

== ENCOUNTER 2022-07-06 17:15 | Outpatient (CLI) | payer MEDICAID, SELFPAY ==
[2021-01-26 15:29] VITALS: BP 123/74; BMI 23.8
[2022-07-06 18:45] LABS: White Blood Count 16.3 10^3/uL (4.0-10.0)
[2022-07-06 18:46] LABS: Absolute Eosinophils 0.1 10^3/cmm (0.0-0.7); Absolute Neutrophil 12.4 10^3/cmm (1.4-6.5); Absolute Segmented Neutrophil 12.4 10/cmm (1.6-7.1); Eosinophils 1 %; Hematocrit 46.7 % (42.0-52.0); Hemoglobin 15.4 g/dL (11.7-16.6); Lymphocytes 19 %; Lymphocytes Absolute 3.1 10^3/cmm (1.2-3.4); Mean Corpuscular Hemoglobin 30.2 pg (28.0-34.0); Mean Corpuscular Volume 91.6 fl (80-94); Mean Platelet Volume 11.4 fL (7.4-10.4); Monocytes Absolute 0.7 10^3/cmm (0.1-0.6); Platelet Count 307 10^3/cmm (130-400); Platelet Estimate Normal (Normal); Red Cell Distribution Width 13.8 % (12.1-15.1); Segmented Neutrophils 76 %; Total Cells Counted 100 (0-100)
[2022-07-06 18:57] LABS: Alanine Aminotransferase 36 U/L (0-41); Alkaline Phosphatase 174 U/L (40-130); Anion Gap 15.1 (5-19); Aspartate Amino Transferase 22 U/L (0-40); Blood Urea Nitrogen 8 mg/dL (6-20); C Reactive Protein 3.1 mg/L (0.0-4.9); Calcium 9.4 mg/dL (8.5-10.5); Carbon Dioxide 23 mmol/L (22-29); Chloride 103 mmol/L (98-107); Globulin 3.4 g/dL (1.3-4.6); Glomerular Filtration Rate 124.9 mL/min (90-130); Glucose 99 mg/dL (65-115); Osmolality Calculated 282 mOsm/kg (285-295); Potassium 4.1 mmol/L (3.5-5.1); Sodium 137 mmol/L (136-145); Thyroid Stimulating Hormone 1.38 uIU/mL (0.27-4.20); Total Bilirubin 0.2 mg/dL (0.15-1.2); Total Protein 7.4 g/dL (6.6-8.7)
[2022-07-06 19:29] LABS: Erythrocyte Sedimentation Rate 19 mm/hr (0-10)
[2022-07-06 23:59] LABS: Estmated Average Glucose 114; Hemoglobin A1C 5.6 % (4.0-6.0)
[2022-07-07 01:37] LABS: Hepatitis A Antibody IgM Non-Reactive (Nonreactive); Hepatitis B Core AB, Total Non-Reactive (Nonreactive); Hepatitis B Surface AB 3.5 (11.5-1000); Hepatitis B Surface Antigen Non-Reactive (Nonreactive); Hepatitis C Virus Antibody Non-Reactive (Nonreactive)
[2022-07-10 15:36] LABS: Anti-Double Strand DNA AB <1 IU/mL; Jo-1 Antibody <1.0 NEG AI (<1.0 NEG); SM/RNP Antibodies <1.0 NEG AI (<1.0 NEG); SS-B/LA IGG <1.0 NEG AI (<1.0 NEG); Scleroderma Ab(Scl-70) Ab <1.0 NEG AI (<1.0 NEG); Ss-A/Ro Igg <1.0 NEG AI (<1.0 NEG)
[2022-07-10 15:52] LABS: Cyclic Citrullinated Peptide <16 UNITS
== END 2022-07-06 17:16 | disposition home or self-care (01) ==
LOC: LAB 17:19
PROVIDERS: PCP Family Medicine Adult Medicine; Visit Provider Family Medicine Adult Medicine
DX: M79.89 Other specified soft tissue disorders (principal); R22.33 Localized swelling, mass and lump, upper limb, bilateral; R00.2 Palpitations
CPT/HCPCS: 36415; 80053; 83036; 84443; 85007; 85027; 85651; 86140; 86200; 86225; 86235; 86431; 86705; 86706; 86709; 86803; 87340

== ENCOUNTER 2022-07-26 06:37 | Outpatient (CLI) | payer MEDICAID, SELFPAY ==
[2021-01-26 15:29] VITALS: BP 123/74; BMI 23.8
--- NOTE | 2022-07-26 07:00 | USCV_ITS ---
Edwin De Souza Age: 41 Gender: M : 1980 Exam Date: 07/26/2022 06:58 Ordering Phys: Barbie Bonilla MD ([email or web address]) Technologist: JAMIE Exam Location: [facility] [place] Indication: TACHYCARDIA, LEG SWELLING, ABNORMAL EKG BP: 132 / 90 HR: 108 Rhythm: Sinus Technical Quality: Adequate MEASUREMENTS (Male / Female) Normal Values 2D ECHO LVOT Diameter 2.0 cm LV Ejection Fraction MOD 2C 76.6 % LV Ejection Fraction 2C AL 78.0 % LA Diameter 3.3 cm LA Width 3.0 cm LA Height 4.1 cm RA Width 3.0 cm RA Height 3.4 cm Aorta at Sinotubular Diameter 2.2 cm IVC Diameter 1.8 cm M-MODE Aortic Annulus Diameter 3.0 cm LA Ao Ratio MM 1.1 MV E Point Septal Separation 0.6 cm DOPPLER AV Peak Velocity 194.3 cm/s LVOT Peak Velocity 105.0 cm/s AV Area Cont Eq vti 1.7 cm squared AV Area Cont Eq pk 1.8 cm squared MV Peak Velocity 110.0 cm/s MV Area PHT 5.0 cm squared MV E' Velocity 53.5 cm/s Mitral E to MV E' Ratio 5.9 Mitral E to LV E' Lateral Ratio 5.9 Mitral E to LV E' Septal Ratio 6.0 TR Peak Velocity 167.1 cm/s TR Peak Gradient 11.2 mmHg TR Mean Velocity 131.0 cm/s TR Mean Gradient 7.3 mmHg TR Velocity Time Integral 32.2 cm TV Peak E Velocity 62.0 cm/s Right Atrial Pressure 3.0 mmHg Pulmonary Artery Systolic Pressu 14.2 mmHg PV Peak Velocity 149.0 cm/s RV Acceleration Time 0.2 s RV Ejection Time 0.3 s RV AcT/ET 0.6 FINDINGS Left Ventricle Normal left ventricular size, systolic function and wall thickness, with no regional wall motion abnormalities. Left ventricular ejection fraction is estimated at 65 %. Normal diastolic function. Right Ventricle Normal right ventricular size and systolic function. Right ventricular systolic pressure 14.2 mmHg. Right Atrium Normal right atrial size. Right atrial pressure estimated at 3 mmHg. Left Atrium Normal left atrial size. Mitral Valve Structurally normal mitral valve. No mitral valve stenosis. Trace mitral valve regurgitation. Aortic Valve Structurally normal trileaflet aortic valve. No aortic valve stenosis. No aortic valve regurgitation. Tricuspid Valve Structurally normal tricuspid valve. No tricuspid valve stenosis. Trace tricuspid valve regurgitation. Pulmonic Valve Pulmonic valve not well visualized. No pulmonary valve stenosis. No significant pulmonary valve regurgitation. Pericardium No pericardial effusion. Aorta Normal-sized aortic root. IVC Normal IVC dimension with >50% respiratory change of the inferior vena cava. CONCLUSIONS 1. Normal left ventricular size, systolic function and wall thickness, with no regional wall motion abnormalities. Left ventricular ejection fraction is estimated at 65 %. Normal diastolic function. 2. Normal right ventricular size and systolic function. 3. No significant valvular abnormality. 4. No prior similar studies to compare. Barbie Bonilla MD (Electronically Signed) Final Date: 31 July 2022 16:10 S
== END 2022-07-26 06:38 | disposition home or self-care (01) ==
LOC: RAD 06:38
PROVIDERS: PCP Family Medicine Adult Medicine; Visit Provider Internal Medicine Cardiovascular Disease
DX: R00.0 Tachycardia, unspecified (principal); M79.89 Other specified soft tissue disorders; R94.31 Abnormal electrocardiogram [ECG] [EKG]; F20.9 Schizophrenia, unspecified; Z79.899 Other long term (current) drug therapy
CPT/HCPCS: 80061; 83721; 85007; 85027; 93306

== ENCOUNTER → 2022-08-15 15:16 | Outpatient (BNVA) | payer MEDICAID, OTHER, SELFPAY ==
[2021-01-26 15:29] VITALS: BP 123/74; BMI 23.8
== END ==
PROVIDERS: PCP Family Medicine Adult Medicine; Visit Provider Nurse Practitioner Psychiatric/Mental Health
DX: F20.5 Residual schizophrenia (principal); Z79.899 Other long term (current) drug therapy
CPT/HCPCS: 85007; 85027

== ENCOUNTER → 2022-08-30 12:38 | Outpatient (BNVA) | payer MEDICAID, SELFPAY ==
[2022-08-16 09:29] VITALS: BP 147/94; BMI 37.6
== END ==
PROVIDERS: PCP Family Medicine Adult Medicine; Visit Provider Nurse Practitioner Psychiatric/Mental Health
DX: F20.5 Residual schizophrenia (principal); Z79.899 Other long term (current) drug therapy
CPT/HCPCS: 85007; 85027

== ENCOUNTER → 2022-09-14 13:51 | Outpatient (BNVA) | payer MEDICAID, SELFPAY ==
[2022-08-16 09:29] VITALS: BP 147/94; BMI 37.6
== END ==
PROVIDERS: PCP Family Medicine Adult Medicine; Visit Provider Nurse Practitioner Psychiatric/Mental Health
DX: F20.5 Residual schizophrenia (principal); Z79.899 Other long term (current) drug therapy
CPT/HCPCS: 85007; 85027

== ENCOUNTER → 2022-10-05 12:57 | Outpatient (BNVA) | payer MEDICAID, SELFPAY ==
[2022-08-16 09:29] VITALS: BP 147/94; BMI 37.6
== END ==
PROVIDERS: PCP Family Medicine Adult Medicine; Visit Provider Nurse Practitioner Psychiatric/Mental Health
DX: Z79.899 Other long term (current) drug therapy (principal); F20.5 Residual schizophrenia; F64.0 Transsexualism; F17.210 Nicotine dependence, cigarettes, uncomplicated; K11.7 Disturbances of salivary secretion
CPT/HCPCS: 85007; 85027

== ENCOUNTER → 2022-10-19 15:04 | Outpatient (BNVA) | payer MEDICAID, SELFPAY ==
[2022-08-16 09:29] VITALS: BP 147/94; BMI 37.6
== END ==
PROVIDERS: PCP Family Medicine Adult Medicine; Visit Provider Nurse Practitioner Psychiatric/Mental Health
DX: F20.5 Residual schizophrenia (principal); Z79.899 Other long term (current) drug therapy; F64.0 Transsexualism; K11.7 Disturbances of salivary secretion; F17.210 Nicotine dependence, cigarettes, uncomplicated
CPT/HCPCS: 85007; 85027

== ENCOUNTER → 2022-11-16 13:44 | Outpatient (BNVA) | payer MEDICAID, SELFPAY ==
[2022-08-16 09:29] VITALS: BP 147/94; BMI 37.6
== END ==
PROVIDERS: PCP Family Medicine Adult Medicine; Visit Provider Nurse Practitioner Psychiatric/Mental Health
DX: F20.5 Residual schizophrenia (principal); Z79.899 Other long term (current) drug therapy; F64.0 Transsexualism; F17.210 Nicotine dependence, cigarettes, uncomplicated; K11.7 Disturbances of salivary secretion
CPT/HCPCS: 85007; 85027

== ENCOUNTER → 2022-12-29 13:52 | Outpatient (BNVA) | payer MEDICAID, SELFPAY ==
[2022-08-16 09:29] VITALS: BP 147/94; BMI 37.6
== END ==
PROVIDERS: PCP Family Medicine Adult Medicine; Visit Provider Nurse Practitioner Psychiatric/Mental Health
DX: F20.5 Residual schizophrenia (principal); Z79.899 Other long term (current) drug therapy; F64.0 Transsexualism; F17.210 Nicotine dependence, cigarettes, uncomplicated; K11.7 Disturbances of salivary secretion
CPT/HCPCS: 85007; 85027

== ENCOUNTER → 2023-01-25 13:34 | Outpatient (BNVA) | payer MEDICAID, SELFPAY ==
[2022-08-16 09:29] VITALS: BP 147/94; BMI 37.6
== END ==
PROVIDERS: PCP Family Medicine Adult Medicine; Visit Provider Nurse Practitioner Psychiatric/Mental Health
DX: F20.5 Residual schizophrenia (principal); Z79.899 Other long term (current) drug therapy
CPT/HCPCS: 85007; 85027

== ENCOUNTER → 2023-02-15 11:08 | Outpatient (BNVA) | payer MEDICAID, SELFPAY ==
[2022-08-16 09:29] VITALS: BP 147/94; BMI 37.6
== END ==
PROVIDERS: PCP Family Medicine Adult Medicine; Visit Provider Family Medicine Adult Medicine
DX: E78.5 Hyperlipidemia, unspecified (principal); R00.0 Tachycardia, unspecified; F17.210 Nicotine dependence, cigarettes, uncomplicated; J44.9 Chronic obstructive pulmonary disease, unspecified
CPT/HCPCS: 80053; 80061; 85025

== ENCOUNTER → 2023-03-13 14:53 | Outpatient (BNVA) | payer MEDICAID, SELFPAY ==
[2023-03-12 09:00] VITALS: BP 147/94; BMI 37.6
== END ==
PROVIDERS: PCP Family Medicine Adult Medicine; Visit Provider Nurse Practitioner Psychiatric/Mental Health
DX: Z79.899 Other long term (current) drug therapy (principal)
CPT/HCPCS: 83036; 85007; 85027

== ENCOUNTER → 2023-04-19 13:32 | Outpatient (BNVA) | payer MEDICAID, SELFPAY ==
[2023-03-12 09:00] VITALS: BP 147/94; BMI 37.6
== END ==
PROVIDERS: PCP Family Medicine Adult Medicine; Visit Provider Nurse Practitioner Psychiatric/Mental Health
DX: F20.5 Residual schizophrenia (principal); Z79.899 Other long term (current) drug therapy; K11.7 Disturbances of salivary secretion; F64.0 Transsexualism; F17.210 Nicotine dependence, cigarettes, uncomplicated
CPT/HCPCS: 85007; 85027

== ENCOUNTER → 2023-05-10 15:30 | Outpatient (BNVA) | payer MEDICAID, SELFPAY ==
[2023-03-12 09:00] VITALS: BP 147/94; BMI 37.6
== END ==
PROVIDERS: PCP Family Medicine Adult Medicine; Visit Provider Nurse Practitioner Psychiatric/Mental Health
DX: Z79.899 Other long term (current) drug therapy (principal)
CPT/HCPCS: 85007; 85027

== ENCOUNTER → 2023-06-22 15:47 | Outpatient (BNVA) | payer MEDICAID, SELFPAY ==
[2023-03-12 09:00] VITALS: BP 147/94; BMI 37.6
== END ==
PROVIDERS: PCP Family Medicine Adult Medicine; Visit Provider Nurse Practitioner Psychiatric/Mental Health
DX: F20.5 Residual schizophrenia (principal); Z79.899 Other long term (current) drug therapy
CPT/HCPCS: 80061; 83036; 85007; 85027

== ENCOUNTER → 2023-08-01 16:10 | Outpatient (BNVA) | payer MEDICAID, SELFPAY ==
[2023-07-02 15:51] VITALS: BP 142/83; BMI 34.4
== END ==
PROVIDERS: PCP Family Medicine Adult Medicine; Visit Provider Nurse Practitioner Psychiatric/Mental Health
DX: F20.5 Residual schizophrenia (principal); Z79.899 Other long term (current) drug therapy
CPT/HCPCS: 85007; 85027

== ENCOUNTER → 2023-08-29 11:22 | Outpatient (BNVA) | payer OTHER, SELFPAY ==
[2023-07-02 15:51] VITALS: BP 142/83; BMI 34.4
== END ==
PROVIDERS: PCP Family Medicine Adult Medicine; Visit Provider Nurse Practitioner Psychiatric/Mental Health
DX: Z79.899 Other long term (current) drug therapy (principal)
CPT/HCPCS: 85007; 85027

== ENCOUNTER → 2023-09-27 13:35 | Outpatient (BNVA) | payer MEDICAID, SELFPAY ==
[2023-07-02 15:51] VITALS: BP 142/83; BMI 34.4
== END ==
PROVIDERS: PCP Family Medicine Adult Medicine; Visit Provider Nurse Practitioner Psychiatric/Mental Health
DX: F20.5 Residual schizophrenia (principal); Z79.899 Other long term (current) drug therapy
CPT/HCPCS: 85007; 85027

== ENCOUNTER → 2023-11-08 13:46 | Outpatient (BNVA) | payer OTHER, SELFPAY ==
[2023-07-02 15:51] VITALS: BP 142/83; BMI 34.4
== END ==
PROVIDERS: PCP Family Medicine Adult Medicine; Visit Provider Nurse Practitioner Psychiatric/Mental Health
DX: F20.5 Residual schizophrenia (principal); Z79.899 Other long term (current) drug therapy
CPT/HCPCS: 85007; 85027

== ENCOUNTER → 2024-01-02 13:08 | Outpatient (BNVA) | payer MEDICAID, SELFPAY ==
[2023-07-02 15:51] VITALS: BP 142/83; BMI 34.4
== END ==
PROVIDERS: PCP Family Medicine Adult Medicine; Visit Provider Nurse Practitioner Psychiatric/Mental Health
DX: F20.5 Residual schizophrenia (principal); Z79.899 Other long term (current) drug therapy
CPT/HCPCS: 85007; 85027

== ENCOUNTER → 2024-01-24 14:01 | Outpatient (BNVA) | payer MEDICAID, SELFPAY ==
[2023-07-02 15:51] VITALS: BP 142/83; BMI 34.4
== END ==
PROVIDERS: PCP Family Medicine Adult Medicine; Visit Provider Nurse Practitioner Psychiatric/Mental Health
DX: F20.5 Residual schizophrenia (principal); Z79.899 Other long term (current) drug therapy
CPT/HCPCS: 85007; 85027

== ENCOUNTER → 2024-02-20 13:06 | Outpatient (BNVA) | payer MEDICAID, SELFPAY ==
[2023-07-02 15:51] VITALS: BP 142/83; BMI 34.4
== END ==
PROVIDERS: PCP Family Medicine Adult Medicine; Visit Provider Nurse Practitioner Psychiatric/Mental Health
DX: F20.5 Residual schizophrenia (principal); Z79.899 Other long term (current) drug therapy; K11.7 Disturbances of salivary secretion; F64.0 Transsexualism; F17.210 Nicotine dependence, cigarettes, uncomplicated
CPT/HCPCS: 85007; 85027

== ENCOUNTER → 2024-03-19 13:43 | Outpatient (BNVA) | payer OTHER, SELFPAY ==
[2023-07-02 15:51] VITALS: BP 142/83; BMI 34.4
== END ==
PROVIDERS: PCP Family Medicine Adult Medicine; Visit Provider Psychiatry & Neurology Neurology
DX: F20.5 Residual schizophrenia (principal); Z79.899 Other long term (current) drug therapy
CPT/HCPCS: 85007; 85027

== ENCOUNTER → 2024-05-13 13:42 | Outpatient (BNVA) | payer BC, SELFPAY ==
[2023-07-02 15:51] VITALS: BP 142/83; BMI 34.4
== END ==
PROVIDERS: PCP Family Medicine Adult Medicine; Visit Provider Nurse Practitioner Psychiatric/Mental Health
DX: Z79.899 Other long term (current) drug therapy (principal); F20.5 Residual schizophrenia
CPT/HCPCS: 80061; 83036; 85007; 85027

== ENCOUNTER → 2024-06-10 13:51 | Outpatient (BNVA) | payer BC, MEDICAID, SELFPAY ==
[2024-05-14 09:22] VITALS: BP 125/88; BMI 34.4
== END ==
PROVIDERS: PCP Family Medicine Adult Medicine; Visit Provider Nurse Practitioner Psychiatric/Mental Health
DX: Z79.899 Other long term (current) drug therapy (principal); F20.5 Residual schizophrenia
CPT/HCPCS: 80053; 83880; 85007; 85027

== ENCOUNTER → 2024-08-04 11:31 | Outpatient (BNVA) | payer BC, MEDICAID, SELFPAY ==
[2024-05-14 09:22] VITALS: BP 125/88; BMI 34.4
== END ==
PROVIDERS: PCP Family Medicine Adult Medicine; Visit Provider Nurse Practitioner Psychiatric/Mental Health
DX: F20.5 Residual schizophrenia (principal); Z79.899 Other long term (current) drug therapy
CPT/HCPCS: 85007; 85027

== ENCOUNTER → 2024-10-10 15:23 | Outpatient (BNVA) | payer BC, SELFPAY ==
[2024-05-14 09:22] VITALS: BP 125/88; BMI 34.4
== END ==
PROVIDERS: PCP Family Medicine Adult Medicine; Visit Provider Nurse Practitioner Psychiatric/Mental Health
DX: F20.5 Residual schizophrenia (principal); Z79.899 Other long term (current) drug therapy
CPT/HCPCS: 85007; 85027

== ENCOUNTER → 2024-11-20 14:52 | Outpatient (BNVA) | payer BC, SELFPAY ==
[2024-05-14 09:22] VITALS: BP 125/88; BMI 34.4
== END ==
PROVIDERS: PCP Family Medicine Adult Medicine; Visit Provider Nurse Practitioner Psychiatric/Mental Health
DX: F20.5 Residual schizophrenia (principal); Z79.899 Other long term (current) drug therapy
CPT/HCPCS: 85007; 85027

== ENCOUNTER → 2025-01-01 15:35 | Outpatient (BNVA) | payer BC, SELFPAY ==
[2024-05-14 09:22] VITALS: BP 125/88; BMI 34.4
== END ==
PROVIDERS: PCP Family Medicine Adult Medicine; Visit Provider Nurse Practitioner Psychiatric/Mental Health
DX: F20.5 Residual schizophrenia (principal); Z79.899 Other long term (current) drug therapy; F64.0 Transsexualism; K11.7 Disturbances of salivary secretion; F17.210 Nicotine dependence, cigarettes, uncomplicated
CPT/HCPCS: 85007; 85027

== ENCOUNTER → 2025-01-29 15:44 | Outpatient (BNVA) | payer BC, SELFPAY ==
[2024-05-14 09:22] VITALS: BP 125/88; BMI 34.4
== END ==
PROVIDERS: PCP Family Medicine Adult Medicine; Visit Provider Nurse Practitioner Psychiatric/Mental Health
DX: F20.5 Residual schizophrenia (principal); Z79.899 Other long term (current) drug therapy
CPT/HCPCS: 85007; 85027

== ENCOUNTER → 2025-03-04 15:08 | Outpatient (BNVA) | payer BC, SELFPAY ==
[2024-05-14 09:22] VITALS: BP 125/88; BMI 34.4
== END ==
PROVIDERS: PCP Family Medicine Adult Medicine; Visit Provider Nurse Practitioner Psychiatric/Mental Health
DX: F20.5 Residual schizophrenia (principal); Z79.899 Other long term (current) drug therapy
CPT/HCPCS: 85007; 85027

== ENCOUNTER → 2025-05-12 12:55 | Outpatient (BNVA) | payer BC, SELFPAY ==
[2024-05-14 09:22] VITALS: BP 125/88; BMI 34.4
== END ==
PROVIDERS: Absent Provider Nurse Practitioner Psychiatric/Mental Health; PCP Family Medicine Adult Medicine; Visit Provider Nurse Practitioner Psychiatric/Mental Health
DX: F20.5 Residual schizophrenia (principal); Z79.899 Other long term (current) drug therapy
CPT/HCPCS: 80053; 80061; 83036; 85007; 85027

== ENCOUNTER → 2025-06-26 15:33 | Outpatient (BNVA) | payer BC, SELFPAY ==
[2025-05-19 10:08] VITALS: BP 133/86; BMI 34.3
== END ==
PROVIDERS: PCP Family Medicine Adult Medicine; Visit Provider Nurse Practitioner Psychiatric/Mental Health
DX: Z79.899 Other long term (current) drug therapy (principal); F20.5 Residual schizophrenia
CPT/HCPCS: 85007; 85027

== ENCOUNTER → 2025-07-08 14:07 | Outpatient (BNVA) | payer BC, SELFPAY ==
[2025-05-19 10:08] VITALS: BP 133/86; BMI 34.3
== END ==
PROVIDERS: PCP Family Medicine Adult Medicine; Visit Provider Nurse Practitioner Psychiatric/Mental Health
DX: Z03.89 Encounter for observation for other suspected diseases and conditions ruled out (principal)
CPT/HCPCS: 81001

== ENCOUNTER → 2025-07-23 13:16 | Outpatient (BNVA) | payer BC, SELFPAY ==
[2025-05-19 10:08] VITALS: BP 133/86; BMI 34.3
== END ==
PROVIDERS: PCP Family Medicine Adult Medicine; Visit Provider Nurse Practitioner Psychiatric/Mental Health
DX: F20.5 Residual schizophrenia (principal); Z79.899 Other long term (current) drug therapy
CPT/HCPCS: 85007; 85027

== ENCOUNTER → 2025-09-11 15:10 | Outpatient (BNVA) | payer BC, SELFPAY ==
[2025-05-19 10:08] VITALS: BP 133/86; BMI 34.3
== END ==
PROVIDERS: PCP Family Medicine Adult Medicine; Visit Provider Nurse Practitioner Psychiatric/Mental Health
DX: F20.5 Residual schizophrenia (principal); Z79.899 Other long term (current) drug therapy
CPT/HCPCS: 85007; 85027